=== PATIENT | female | born 1960 | race Caucasian/White ===

== ENCOUNTER 2016-08-19 17:21 | Emergency (ER) | payer OTHER ==
[2016-08-19 17:35] VITALS: BP 146/82; PULSE 86; TEMP 98.4; BMI 30.2
--- NOTE | 2016-08-19 19:02 | PDOC ---
History of Present Illness - General Chief Complaint: Cold Symptoms Stated Complaint: COLD SYMPTOMS Time Seen by Provider: 08/19/16 18:46 History Source: Patient Exam Limitations: No Limitations - History of Present Illness Initial Comments: 08/19/16 18:58 CC SORE THROAT FEVER; X 3 DAYS WITH NASAL CONGESTION Timing/Duration: reports: getting worse Severity: reports: mild Possible Cause: No: other Modifying Factors: worse with: albuterol inhaler Associated Symptoms: reports: cough, nasal congestion, nasal drainage, shortness of breath. denies: denies symptoms, fever/chills, sore throat Past History - Past Medical History Allergies/Adverse Reactions: Allergies Allergy/AdvReac Type Severity Reaction Status Date / Time No Known Drug Allergies Allergy Verified 08/19/16 17:32 Home Medications: Ambulatory Orders Hydrocortisone 0.5% Cream [Hytone 0.5% Cream -] 1 applic TP BID #1 tube Other medical history: DENIES. - Psycho/Social/Smoking Cessation Hx Suicidal Ideation: No Smoking History: Never smoked Have you smoked in the past 12 months: No Hx Alcohol Use: No Drug/Substance Use Hx: No Substance Use Type: None Review of Systems - Review of Systems Constitutional: No: Chills, Fever, Malaise HEENTM: Yes: Nose Pain, Nose Congestion Respiratory: Yes: Symptoms reported, Cough. No: Stridor, Wheezing Cardiac (ROS): No: Symptoms Reported ABD/GI: No: Symptoms Reported : No: Symptoms Reported Musculoskeletal: No: Symptoms Reported *Physical Exam - Vital Signs Last Vital Signs Temp Pulse Resp BP Pulse Ox 98.4 F 86 19 146/82 95 08/19/16 17:32 08/19/16 17:32 08/19/16 17:32 08/19/16 17:32 08/19/16 17:32 - Physical Exam General Appearance: Yes: Appropriately Dressed. No: Apparent Distress HEENT: positive: TMs Normal, Nasal Congestion, Rhinorrhea, Sinus Tenderness. negative: TM Bulging, TM Dull, TM Erythema Neck: positive: Supple, Lymphadenopathy (R), Lymphadenopathy (L). negative: Tender, Rigid Respiratory/Chest: positive: Lungs Clear. negative: Chest Tender, Accessory Muscle Use Medical Decision Making - Medical Decision Making 08/19/16 19:00 WILL TREAT WITH AMOX DUE TO SEVERITY OF SYMPTOMS *DC/Admit/Observation/Transfer Diagnosis at time of Disposition: Tonsillitis - Discharge Dispostion Disposition: HOME Condition at time of disposition: Stable Admit: No - Patient Instructions Additional Instructions: LOTS OF FLUIDS; REST; RETURN FOR INCREASED SYMPTOMS; MOTRIN FOR FEVER; USE THROAT DROPS NEEDED Print Language: ARMENIAN - Post Discharge Activity Work/School Note: Back to Work
== END 2016-08-19 19:06 | disposition home or self-care (01) ==
LOC: JERFT 17:21
DX: J03.90 Acute tonsillitis, unspecified (principal)
CPT/HCPCS: 99281-25

== ENCOUNTER 2019-05-02 16:21 | Emergency (ER) | payer OTHER ==
[2019-05-02 16:39] VITALS: BP 151/54; PULSE 86; TEMP 98; BMI 34.6
--- NOTE | 2019-05-02 16:40 | PDOC ---
Rapid Medical Evaluation Chief Complaint: Headache Time Seen by Provider: 05/02/19 16:38 Medical Evaluation: Allergies Allergy/AdvReac Type Severity Reaction Status Date / Time No Known Drug Allergies Allergy Verified 05/02/19 16:34 Vital Signs Temp Pulse Resp BP Pulse Ox 98.0 F 86 17 151/54 L 96 05/02/19 16:35 05/02/19 16:35 05/02/19 16:35 05/02/19 16:35 05/02/19 16:35 05/02/19 16:39 59 year old female c/o occipital headache, blurred vision, neck pain. patient is currently on treatment for conjunctivitis. PE: pateint alert ox3 A; headache P; patient to the ER for further management of care. Discharge Disposition - Diagnosis Headache Qualifiers: Headache type: unspecified Headache chronicity pattern: unspecified pattern Intractability: not intractable Qualified Code(s): R51 - Headache - Referrals - Patient Instructions - Post Discharge Activity
[2019-05-02] MEDS ORDERED: ACETAMINOPHEN 500 MG TABLET (FP) PO ONE (17:24)
[2019-05-02] MEDS ORDERED: ACETAMINOPHEN 325 MG TABLET (FP) ONE (17:36)
--- NOTE | 2019-05-02 17:42 | PDOC ---
History of Present Illness - General Chief Complaint: Headache Stated Complaint: PAIN Time Seen by Provider: 05/02/19 16:38 - History of Present Illness Initial Comments: 05/02/19 17:42 59 yo F PMH GERD, hysterectomy 33 years ago, R eye conjunctivitis diagnosed a week ago, presenting with occipital HOYOS and blurry vision. Telugu speaking only. Reports that she is here because the occipital headache has spread down into her neck. She has not taken any medications at home for the headache. She has been using abx drops for her conjuctivitis, which has significantly improved. Reports having a similar HOYOS about 3 years ago, but had not had any issues since then. Patient has glasses at home but does not typically use them. She used to be able to read large letters without the glasses, but now she cannot. Specifically denies CP, SOB, constipation/diarrhea, abd pain, N/V, fevers/ chills. Endorses HOYOS and blurry vision. Past History - Past Medical History Allergies/Adverse Reactions: Allergies Allergy/AdvReac Type Severity Reaction Status Date / Time No Known Drug Allergies Allergy Verified 05/02/19 16:34 Home Medications: Ambulatory Orders Hydrocortisone 0.5% Cream [Hytone 0.5% Cream -] 1 applic TP BID #1 tube Amoxicillin - [Amoxicillin 500mg Capsule -] 500 mg PO TID #21 capsule 08/19/16 Benzocaine/Menthol [Chloraseptic Max Lozenge] 1 each MM 5XD #30 lozenge Ibuprofen [Motrin -] 400 mg PO QID #28 tablet 08/19/16 COPD: No - Immunization History Immunization Up to Date: Yes - Psycho Social/Smoking Cessation Hx Smoking History: Never smoked Have you smoked in the past 12 months: No Information on smoking cessation initiated: No Hx Alcohol Use: No Drug/Substance Use Hx: No Substance Use Type: None Review of Systems - Review of Systems Comments:: 05/02/19 17:49 GENERAL/CONSTITUTIONAL: No fever or chills. No weakness. HEAD, EYES, EARS, NOSE AND THROAT: Blurry vision. No ear pain or discharge. No sore throat. CARDIOVASCULAR: No chest pain or shortness of breath. RESPIRATORY: No cough, wheezing, or hemoptysis. GASTROINTESTINAL: No nausea, vomiting, diarrhea or constipation. GENITOURINARY: No dysuria, frequency, or change in urination. MUSCULOSKELETAL: No joint or muscle swelling or pain. No neck or back pain. SKIN: No rash NEUROLOGIC: Occipitlal headache extending into the neck. No vertigo, loss of consciousness, or change in strength/sensation. ENDOCRINE: No increased thirst. No abnormal weight change. HEMATOLOGIC/LYMPHATIC: No anemia, easy bleeding, or history of blood clots. ALLERGIC/IMMUNOLOGIC: No hives or skin allergy *Physical Exam - Vital Signs Last Vital Signs Temp Pulse Resp BP Pulse Ox 98.0 F 86 17 151/54 L 96 05/02/19 16:35 05/02/19 16:35 05/02/19 16:35 05/02/19 16:35 05/02/19 16:35 - Physical Exam Comments: 05/02/19 18:05 Gen: well-developed, well-nourished, NAD Neuro: AAOX4, CN II-XII intact, FTN intact, EOMI, PERRLA, 5/5 strength, SILT HEENT: atraumatic, normocephalic, dry mucous membranes. No temporal tenderness, R eye without signs of acute conjunctivitis. Neck: trachea midline, supple, no tenderness, no pain with movement, no stiffness CV: regular rate, regular rhythm, no murmurs, rubs, or gallops Pulm: CTA b/l, no wheezing Abd: soft, non-distended, non-tender MSK: full ROM, intact pulses Extr: no edema, no deformities Skin: warm, dry ED Treatment Course - LABORATORY CBC & Chemistry Diagram: 05/02/19 18:34 05/02/19 18:34 - RADIOLOGY Radiology Studies Ordered: Category Date Time Status HEAD CT WITHOUT CONTRAST [CT] Stat CT Scan 05/02/19 17:30 Ordered - Medications Given in the ED: ED Medications Discontinued Medications Generic Name Dose Route Start Last Admin Trade Name Freq PRN Reason Stop Dose Admin Acetaminophen 975 mg 05/02/19 17:24 05/02/19 17:38 Tylenol - PO 05/02/19 17:25 975 mg ONCE ONE Administration Medical Decision Making - Medical Decision Making 05/02/19 17:59 Concern for SAH v temporal arteritis vs acute angle glaucoma v meningitis v tension HOYOS with unrelated blurry vision. Less likely temporal arteritis considering lack of temporal tenderness and headache location, less likely acute angle glaucoma considering slow onset, less likely meningitis considering lack of fever and lack of neck stiffness. - CBC, CMP - CT head - acetaminophen - reassess 05/02/19 18:[address] with no acute pathology. Will f/u labs, likely dc home. 05/02/19 19:14 Snellens with L eye 20/70, R eye 20/100. 05/02/19 19:30 CBC, CMP wnl. Will dc patient home with close outpatient follow-up. Discharge - Discharge Information Problems reviewed: Yes Clinical Impression/Diagnosis: Headache Qualifiers: Headache type: unspecified Headache chronicity pattern: unspecified pattern Intractability: not intractable Qualified Code(s): R51 - Headache - Follow up/Referral Referrals: Lloyd Hale MD [Primary Care Provider] - - Patient Discharge Instructions Patient Printed Discharge Instructions: DI for Headache Additional Instructions: Te vieron con dolor de dontrell. Jeri laboratorios fueron normales y funk tomografa computarizada no mostr ningn hallazgo preocupante. Visita funk doctor primaria dentro de shantelle semana. Funk visin borrosa puede deberse a shantelle prescripcin cambiante, siga esto y comience a usar jeri anteojos. [place] ibuprofeno o acetaminofeno segn sea necesario para funk dolor de dontrell. Regrese al servicio de urgencias si desarrolla sntomas empeorados. - Post Discharge Activity
[2019-05-02 18:57] LABS: BASO % 0.4 % (0-2.0); EOS % 2.3 % (0-4.5); HEMATOCRIT 41.1 % (32.4-45.2); HEMOGLOBIN 13.5 GM/dL (10.7-15.3); LYMPH % 25.3 % (8-40); MCHC 32.9 g/dl (32.0-36.0); MEAN CELL VOLUME 85.2 fl (80-96); MEAN PLT VOLUME 7.6 fl (7.5-11.1); MONO % 9.8 % (3.8-10.2); NEUT % 62.2 % (42.8-82.8); PLATELET COUNT 269 K/MM3 (134-434); RBC 4.82 M/mm3 (3.60-5.2); RDW 14.2 % (11.6-15.6); WHITE BLOOD COUNT 5.7 K/mm3 (4.0-10.0)
[2019-05-02 19:23] LABS: ALBUMIN 3.8 g/dl (3.4-5.0); BILIRUBIN,TOTAL 0.3 mg/dL (0.2-1); BLOOD UREA NITROGEN 10.6 mg/dL (7-18); CALCIUM 8.6 mg/dL (8.5-10.1); CREATININE 0.7 mg/dL (0.55-1.3); POTASSIUM 4.4 mmol/L (3.5-5.1); TOT PROT 7.3 g/dl (6.4-8.2)
[2019-05-02] MEDS ORDERED: diazePAM 5 MG TABLET PO ONE (21:50)
[2019-05-02] MEDS ORDERED: IBUPROFEN 600 MG TABLET (FP) PO ONE ×2 (21:51→22:05)
--- NOTE | 2019-05-02 21:55 | PDOC ---
Documentation entered by Rohith Berry SCRIBE, acting as scribe for Zoe Ballard MD. Zoe Ballard MD: This documentation has been prepared by the Jamal hoyt Daniel, SCRIBE, under my direction and personally reviewed by me in its entirety. I confirm that the documentation accurately reflects all work, treatment, procedures, and medical decision making performed by me. Attending Attestation - Resident Resident Name: Radha Pena - ED Attending Attestation I have performed the following: I have examined & evaluated the patient, The case was reviewed & discussed with the resident, I agree w/resident's findings & plan, Exceptions are as noted - HPI HPI: 05/02/19 18:06 The patient is a 59 year old female with a past medical history of GERD here today for evaluation of headache. The patient reports that she has had a worsening occipital headache for the past 3 days that has had a gradual onset and radiates to her neck. She notes associated blurry vision. Patient denies lightheadedness. Denies fever, chills. Denies chest pain, shortness of breath. Denies nausea, vomiting, diarrhea, abdominal pain. Allergies: NKDA Surgical history: hysterectomy PCP: Lloyd Hale - Physicial Exam PE: 05/02/19 21:51 Awake alert no acute distress head is atraumatic there is no midline cervical spinal tenderness. No temporal artery tenderness extraocular motions are intact and aligned lungs are clear bilaterally heart is regular without murmurs rubs or gallops abdomen soft nontender extremities are warm and well-perfused neurologically she is awake alert and oriented x3 cranial nerves II through XII are intact strength is 5 out of 5 all 4 extremities and symmetric patient does have noted bilateral trapezial muscle spasm - Medical Decision Making 05/02/19 21:53 59-year-old female here today complaining of headache patient states that the bicipital she also describes neck tightness and spasm in her shoulders rating up to the base of her head she has had progressively worsening blurry vision scribe is foggy she saw an eye doctor 2 weeks ago was given eyedrops for conjunctivitis states she wears glasses for reading but otherwise does not wear glasses no focal weakness no head trauma no fevers chills no nausea no vomiting patient was given Tylenol prior to my evaluation is overall feeling improved his normal neurological exam we will give her Valium for her muscle spasm which may be contributing to all headache and discharge home CT head is unremarkable Heart Score/ECG Review #1 General ECG Interpretation: Sinus Rhythm, Normal Rate (69), Normal Intervals, No acute ischemic changes
[2019-05-02] MEDS ORDERED: diazePAM 5 MG TABLET ONE (22:03)
--- NOTE | 2019-05-04 20:16 | EKG ---
Test Reason : Blood Pressure : / mmHG Vent. Rate : 069 BPM Atrial Rate : 069 BPM P-R Int : 144 ms QRS Dur : 080 ms QT Int : 426 ms P-R-T Axes : 027 017 -06 degrees QTc Int : 456 ms NORMAL SINUS RHYTHM NONSPECIFIC T WAVE ABNORMALITY NO PREVIOUS ECGS AVAILABLE Confirmed by LINO CAMPOS MD ([id number]) on 05/04/2019 8:16:02 PM Referred By: Confirmed By:LINO CAMPOS MD
== END 2019-05-02 22:09 | disposition home or self-care (01) ==
LOC: JER 16:21
PROC: 4A07X0Z Measurement of Visual Acuity, External Approach (ICD-10-PCS; principal; 2019-05-02)
DX: R51 Headache (principal); K21.9 Gastro-esophageal reflux disease without esophagitis
CPT/HCPCS: 36415; 70450-TC; 80053; 85025; 93005; 93010; 99173; 99282-25

== ENCOUNTER 2020-07-22 17:55 | Emergency (ER) | payer OTHER ==
[2020-07-22 18:41] VITALS: BP 159/75; PULSE 95; TEMP 98.1; BMI 30.2
[2020-07-22] MEDS ORDERED: LIDOCAINE 5% TOPICAL PATCH TP ONE (21:17)
[2020-07-22] MEDS ORDERED: KETOROLAC TROMETHAMINE 60 MG/2 ML VIAL IM ONE (21:17)
[2020-07-22] MEDS ORDERED: KETOROLAC TROMETHAMINE 60 MG/2 ML VIAL ONE (21:41)
[2020-07-22] MEDS ORDERED: LIDOCAINE 5% TOPICAL PATCH ONE (21:41)
[2020-07-22 21:59] LABS: BASO % 0.8 % (0-2.0); HEMATOCRIT 39.7 % (32.4-45.2); HEMOGLOBIN 13.3 GM/dL (10.7-15.3); LYMPH % 33.1 % (8-40); MCH 28.4 pg (25.7-33.7); MCHC 33.5 g/dl (32.0-36.0); MEAN CELL VOLUME 84.7 fl (80-96); MEAN PLT VOLUME 7.7 fl (7.5-11.1); MONO % 10.7 % (3.8-10.2); NEUT % 53.4 % (42.8-82.8); PLATELET COUNT 267 K/MM3 (134-434); RBC 4.69 M/mm3 (3.60-5.2); RDW 13.5 % (11.6-15.6); WHITE BLOOD COUNT 5.2 K/mm3 (4.0-10.0)
[2020-07-22 22:16] LABS: INR 1.05 (0.83-1.09); PROTHROMBIN TIME (PATIENT) 12.7 SEC (9.7-13.0)
[2020-07-22 22:19] LABS: ACTIVATED PTT 35.5 SECONDS (25.2-36.5)
[2020-07-22 22:24] LABS: CHLORIDE 103 mmol/L (98-107); POTASSIUM 4.4 mmol/L (3.5-5.1); SODIUM 139 mmol/L (136-145)
[2020-07-22 22:26] LABS: CALCIUM 9.3 mg/dL (8.5-10.1)
[2020-07-22 22:27] LABS: ALBUMIN 4.1 g/dl (3.4-5.0); ANION GAP 4 MMOL/L (8-16); BLOOD UREA NITROGEN 10.3 mg/dL (7-18); CO2 31 mmol/L (21-32); GLUCOSE,RANDOM 105 mg/dL (74-106)
[2020-07-22 22:30] LABS: CREATININE 0.7 mg/dL (0.55-1.3); SGPT/ALT 38 U/L (13-61)
[2020-07-22 22:31] LABS: BILIRUBIN,TOTAL 0.6 mg/dL (0.2-1)
[2020-07-22 22:32] LABS: TOT PROT 7.9 g/dl (6.4-8.2)
[2020-07-22 22:33] LABS: ALK PHOS 102 U/L (45-117)
[2020-07-22 23:08] LABS: SGOT/AST 32 U/L (15-37)
[2020-07-23] MEDS ORDERED: LIDOCAINE PATCH REMOVAL MC SCH (10:00)
== END 2020-07-22 23:26 | disposition home or self-care (01) ==
LOC: JER 17:55
PROC: 3E0233Z Introduction of Anti-inflammatory into Muscle, Percutaneous Approach (ICD-10-PCS; principal; 2020-07-22)
DX: R07.81 Pleurodynia (principal)
CPT/HCPCS: 36415; 71046-TC-FY; 80053; 82550; 82553; 84484; 85025; 85610; 85730; 93005; 93010; 99285-25

== ENCOUNTER 2023-12-28 21:33 | Emergency (ER) | payer OTHER ==
[2023-12-28 21:52] VITALS: BMI 30.3
[2023-12-28] MEDS ORDERED: MAG HYDROX/AL HYDROX/SIMETH 30 ML UNIT-DOSE CUP ONE (23:51)
[2023-12-28] MEDS ORDERED: FAMOTIDINE 20 MG/50 ML IVPB 20 MG/50 ML MG IVPB ONE (23:51)
[2023-12-29] MEDS: SODIUM CHLORIDE 1,000 ML IV STA (00:02)
[2023-12-29] MEDS: FAMOTIDINE 20 MG/50 ML IVPB 20 MG/50 ML MG IVPB ONE (00:02)
[2023-12-29] MEDS: MAG HYDROX/AL HYDROX/SIMETH 30 ML UNIT-DOSE CUP PO ONE (00:02)
[2023-12-29 00:49] LABS: BASO % 0.4 % (0-2.0); EOS % 3.1 % (0-4.5); HEMATOCRIT 39.4 % (32.4-45.2); HEMOGLOBIN 13.5 GM/dL (10.7-15.3); LYMPH % 20.9 % (8-40); MCHC 34.1 g/dl (32.0-36.0); MEAN CELL VOLUME 82.1 fl (80-96); MEAN PLT VOLUME 7.4 fl (7.5-11.1); MONO % 10.4 % (3.8-10.2); NEUT % 65.2 % (42.8-82.8); PLATELET COUNT 250 10^3/uL (134-434); RBC 4.81 M/mm3 (3.60-5.2); RDW 14.3 % (11.6-15.6); WHITE BLOOD COUNT 5.1 K/mm3 (4.0-10.0)
[2023-12-29 01:12] LABS: POTASSIUM 4.7 mmol/L (3.5-5.1)
[2023-12-29 01:14] LABS: CALCIUM 9.2 mg/dL (8.5-10.1)
[2023-12-29 01:15] LABS: ALBUMIN 3.8 g/dl (3.4-5.0); BLOOD UREA NITROGEN 12.7 mg/dL (7-18)
[2023-12-29 01:18] LABS: CREATININE 0.7 mg/dL (0.55-1.3)
[2023-12-29 01:19] LABS: BILIRUBIN,TOTAL 0.4 mg/dL (0.2-1); TOT PROT 7.4 g/dl (6.4-8.2)
[2023-12-29 01:33] LABS: URINE APPEARANCE CLEAR; URINE BILIRUBIN NEGATIVE (NEGATIVE); URINE COLOR YELLOW; URINE GLUCOSE (UA) NEGATIVE (NEGATIVE); URINE KETONE NEGATIVE (NEGATIVE); URINE LEUK ESTERASE NEGATIVE (NEGATIVE); URINE NITRITE NEGATIVE (NEGATIVE); URINE PROTEIN NEGATIVE (NEGATIVE); URINE UROBILINOGEN 0.2 mg/dL (0.2-1.0)
[2023-12-29] MEDS: ACETAMINOPHEN 1000 MG/100 ML BAG IVPB ONE (02:46)
[2023-12-29] MEDS ORDERED: KETOROLAC TROMETHAMINE 30 MG/1 ML VIAL ONE (03:30)
[2023-12-29] MEDS: KETOROLAC TROMETHAMINE 30 MG/1 ML VIAL IVPUSH ONE (03:34)
[2023-12-29] MEDS ORDERED: SODIUM PHOSPHATE/NA BIPHOS 133 ML ENEMA PR ONE (08:13)
[2023-12-29 08:55] VITALS: BP 147/68; PULSE 59; RESP 15; TEMP 97.8
== END 2023-12-29 08:50 | disposition home or self-care (01) ==
LOC: JER 21:33
PROC: 3E033GC Introduction of Other Therapeutic Substance into Peripheral Vein, Percutaneous Approach (ICD-10-PCS; principal; 2023-12-29)
PROC: 3E0333Z Introduction of Anti-inflammatory into Peripheral Vein, Percutaneous Approach (ICD-10-PCS; 2023-12-29)
DX: R10.31 Right lower quadrant pain (principal)
CPT/HCPCS: 36415; 74177-TC; 80053; 81003; 83690; 84484; 85025; 87086; 99285-25; Q9967